=== PATIENT | female | born 1970 | race Caucasian/White ===

== ENCOUNTER 2020-06-14 19:30 | Emergency (ER) | payer BC ==
[2020-06-14 19:57] VITALS: BP 137/83; PULSE 56; TEMP 97.8; BMI 24.4
== END 2020-06-14 20:00 | disposition home or self-care (01) ==
LOC: FER 19:30
DX: S61.210A Laceration without foreign body of right index finger without damage to nail, initial encounter (principal)
CPT/HCPCS: 99282-25